=== PATIENT | male | born 1950 | race Caucasian/White ===

== ENCOUNTER 2023-10-08 08:08 | Outpatient (AMB) | payer MEDICARE, SELFPAY ==
--- NOTE | 2023-10-08 08:26 | AM.OFFWIN_ITS ---
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 He also has associated reduced hearing. He states he has had reduced hearing so he went to the [facility], they looked in his ears and told him there are both packed with cerumen and to go home and use Debrox drops and then to come here and have the wax removed. He is trying to get a hearing test done but they can not perform it until the wax is removed. So he states he has been using Debrox drops for the past 2 weeks. [facility] Social History Patient Tobacco Use Status: Former Tobacco user Review of Systems Const All systems reviewed & are unremarkable except as noted in HPI and below Physical Exam Vital Signs: Last Vital Signs Temp 97.7 F 10/08/23 08:27 Pulse 74 10/08/23 08:27 BP 128/84 10/08/23 08:27 Pulse Ox 98 10/08/23 08:27 Oxygen Delivery Method Room Air 10/08/23 08:27 BMI result Body Mass Index 19.1 Const General: cooperative, healthy appearing, comfortable and no acute distress Orientation/consciousness: patient oriented x3 HEENT Head: Yes normal to inspection Ears: mastoids normal, Abnormal EAC present cerumen impaction and unable to visualize TM (cerumen blockage) General nose exam: Normal external nose present Face and sinus: Yes normal facial exam Resp Effort & Inspection: normal respiratory effort and able to speak in complete sentences Neuro General: patient oriented x3 Office Procedures Cerumen Removal From which ear canal was the cerumen removed: bilateral Removal: cerumen loop/spoon Notes: patient tolerated procedure well and no complications [id number] Wax Removal by Spoon/Curette Cerumen Removal Details: We 1st tried to scoop out the wax but could not get all of it and needed to irrigate both ears From which ear canal was the cerumen removed: bilateral Removal: irrigation Notes: patient tolerated procedure well, no complications and ear canal clear [id number] Irrigation/Lavage Assessment & Plan Assessment & Plan (1) Impacted cerumen of both ears: Code(s): H61.23 - Impacted cerumen, bilateral Plan: Scooped wax out then had to irrigate both ears for complete removal, ear canals are clear, recommended using Debrox drops once monthly. Plan See above Coding Level of Care Code New Pt Level 4 (39264) Diagnoses Impacted cerumen of both ears H61.23 CPT Codes Office Procedure - CPT: 82470-Xql Wax Removal by Spoon/Curette ([id number]) Office Procedure - CPT: 63777-Xve Irrigation/Lavage ([id number])
[2023-10-08 08:27] VITALS: BP 128/84; PULSE 74; TEMP 36.5; O2SAT 98; BMI 19.1
== END 2023-10-08 09:20 | disposition home or self-care (01) ==
PROVIDERS: Visit Provider Physician Assistant
DX: H61.23 Impacted cerumen, bilateral (principal)
CPT/HCPCS: 69210; 99202